=== PATIENT | female | born 1995 | race Caucasian/White ===

== ENCOUNTER 2023-08-10 18:46 | Emergency (ER) | payer BC ==
[~2023-08-10] VITALS: Ht 167.6 cm; Wt 49.9 kg
[2023-08-10] MEDS ORDERED: KETOROLAC TROMETHAMINE 15 MG/ML VIAL ONE (19:55)
[2023-08-10] MEDS: IV NS 0.9% 1,000 ML BAG IV ONE (19:56)
[2023-08-10] MEDS ORDERED: LORAZEPAM INJ 2 MG/ML VIAL ONE (19:56)
[2023-08-10] MEDS: KETOROLAC TROMETHAMINE 15 MG/ML VIAL IV ONE (19:59)
[2023-08-10] MEDS: LORAZEPAM INJ 2 MG/ML VIAL IV ONE (20:00)
[2023-08-10 20:24] LABS: BASOPHILS % (AUTO) 0.1 % (0.0-2.0); HEMATOCRIT 41 % (33-45); HEMOGLOBIN 14.2 g/dL (11.5-14.8); MEAN CORPUSCULAR HEMOGLOBIN 31 PG (26.0-33.0); MEAN CORPUSCULAR HGB CONC 35 g/dl (31.0-36.0); MEAN CORPUSCULAR VOLUME 88 fL (82-100); MONOCYTES # (AUTO) 0.5 K/uL (0.1-1.30); MONOCYTES % (AUTO) 5.5 % (2.0-12.0); NEUTROPHILS # (AUTO) 6.9 K/uL (1.8-8.9); NEUTROPHILS % (AUTO) 82.4 % (43.0-81.0); PLATELET COUNT (AUTO) 284 K/uL (150-450); RED BLOOD CELL COUNT(AUTO) 4.66 MIL/uL (4.0-5.2); WHITE BLOOD COUNT (AUTO) 8.4 K/uL (4.3-11.0)
[2023-08-10 20:53] LABS: PREGNANCY TEST URINE QUAL NEGATIVE (NEGATIVE)
[2023-08-10] MEDS ORDERED: IV NS 0.9% 250 ML IV ONE (20:56)
[2023-08-10] MEDS ORDERED: IOHEXOL-350 100 ML VIAL IV ONE (20:56)
[2023-08-10 21:18] LABS: CALCIUM, SERUM 8.9 mg/dL (8.5-10.1); CARBON DIOXIDE 27 mmol/L (21-32); CHLORIDE 101 mmol/L (98-107); CREATININE 0.9 mg/dL (0.6-1.3); GLUCOSE 100 mg/dL (74-106); SODIUM SERUM 137 mmol/L (136-145); UREA NITROGEN, BLOOD 10 mg/dL (7-18)
[2023-08-10 21:29] LABS: NT-PRO BNP 95 pg/mL (0-125)
[2023-08-10] MEDS ORDERED: METOPROLOL TARTRATE INJ 5 MG/5 ML AMPUL ONE (21:52)
[2023-08-10] MEDS: METOPROLOL TARTRATE INJ 5 MG/5 ML AMPUL IV ONE (22:01)
[2023-08-10 22:16] LABS: MAGNESIUM 1.7 mg/dL (1.8-2.4); THYROID STIMULATING HORMONE 2.967 uIU/mL (0.358-3.74)
[2023-08-10] MEDS ORDERED: METO25TA3 PO (22:26)
[2023-08-10 22:35] VITALS: BP 138/94; TEMP 98.7; O2SAT 99
== END 2023-08-10 22:35 | disposition home or self-care (01) ==
LOC: ER 18:46
DX: F41.0 Panic disorder [episodic paroxysmal anxiety] (principal); R00.2 Palpitations; I49.8 Other specified cardiac arrhythmias; Z60.2 Problems related to living alone
CPT/HCPCS: 99285; 96374; 71275; 96361; 96375 ×2; 93005; 85025; 80048; 83735; 85378; 84703; 36415; 84439; 84443; 84484; 83880; J2060; J3490; J7030; J7050; Q9967; J1885